=== PATIENT | male | born 1970 | race Caucasian/White ===

== ENCOUNTER 2022-12-26 18:14 | Outpatient (CLI) | payer OTHER, SELFPAY | END 2022-12-26 18:15 | disposition home or self-care (01) | LOC: AMB 01-02 04:04 | PROVIDERS: Visit Provider Family Medicine | DX: R41.82 Altered mental status, unspecified (principal); G82.50 Quadriplegia, unspecified; W07.XXXA Fall from chair, initial encounter; Y92.000 Kitchen of unspecified non-institutional (private) residence as the place of occurrence of the external cause | CPT/HCPCS: A0425; A0427 ==

== ENCOUNTER 2023-08-06 08:05 | Outpatient (CLI) | payer OTHER, SELFPAY | END 2023-08-06 08:06 | disposition home or self-care (01) | LOC: AMB 08-10 13:58 | PROVIDERS: Visit Provider Emergency Medicine | DX: R41.82 Altered mental status, unspecified (principal) | CPT/HCPCS: A0425; A0427 ==

== ENCOUNTER 2023-08-15 02:23 | Outpatient (CLI) | payer OTHER, MEDICARE, SELFPAY | END 2023-08-15 02:24 | disposition home or self-care (01) | LOC: AMB 09-19 13:45 | PROVIDERS: Visit Provider Emergency Medicine | DX: R41.82 Altered mental status, unspecified (principal); R55 Syncope and collapse | CPT/HCPCS: A0425; A0427 ==